=== PATIENT | male | born 1930 | race Caucasian/White ===

== ENCOUNTER 2018-07-09 22:01 | Inpatient (IN) | payer MEDICARE, OTHER ==
[~2018-07-09] VITALS: Ht 177.8 cm; Wt 77.3 kg
[~2018-07-09 22:01] MED LIST: AMA100C PO; CARB1TAB36 PO; COU1T PO; COU3T PO; LISI-642 PO; LOPE-144 PO; SIMV10TA6 PO; TERB15CR18 TP
[2018-07-09] MEDS ORDERED: LIDOcaine 2% 10ml TOPICAL JELLY (Urojet) MM ONE (22:10)
[2018-07-09] MEDS ORDERED: POTA10TA10 PO (22:57)
[2018-07-09] MEDS ORDERED: FURO-150 PO (22:57)
[2018-07-09] MEDS ORDERED: CARB1TAB23 PO ×3 (22:57)
[2018-07-09 23:01] LABS: ALANINE AMINOTRANSFERASE 24 U/L (12-78); ALBUMIN 3.6 G/DL (3.4-5.0); ALBUMIN/GLOBULIN RATIO 1.1 (1.1-1.5); ALKALINE PHOSPHATASE 106 IU/L (46-116); ANION GAP 6 (8-16); ASPARTATE AMINO TRANSFERASE 25 U/L (10-37); BILIRUBIN,TOTAL 0.7 MG/DL (0.1-1.0); BLOOD UREA NITROGEN 23 MG/DL (7-18); CHLORIDE 105 MMOL/L (99-107); CREATININE 1.15 MG/DL (0.60-1.10); GLUCOSE 205 MG/DL (70-104); POTASSIUM 4.4 MMOL/L (3.5-5.1); SODIUM 141 MMOL/L (135-145); TOTAL CARBON DIOXIDE 29.6 MMOL/L (24-32); eGFR 60 ML/MIN
[2018-07-09 23:21] LABS: BASOPHILS # (AUTO) 0.2 X10'3 (0-0.2); BASOPHILS % (AUTO) 1.2 % (0-1); EOSINOPHILS % (AUTO) 0.1 % (0-6); HEMATOCRIT 40.6 % (42.0-52.0); HEMOGLOBIN 13.5 g/dl (14.0-17.9); LYMPHOCYTES # (AUTO) 0.8 X10'3 (1.1-4.8); LYMPHOCYTES % (AUTO) 6.4 % (21-51); MEAN CORPUSCULAR HGB CONC 33.3 % (33.0-36.5); MEAN CORPUSCULAR VOLUME 93.1 FL (78-98); MEAN PLATELET VOLUME 8.7 FL (7.4-10.4); MONOCYTES # (AUTO) 0.8 X10'3 (0-0.9); MONOCYTES % (AUTO) 6.5 % (2-12); NEUTROPHILS % (AUTO) 85.8 % (42-75); PLATELET COUNT 167 X10'3 (140-440); RED BLOOD COUNT 4.36 X10'6 (4.70-6.10); RED CELL DISTRIBUTION WIDTH 14.8 % (11.5-14.5); WHITE BLOOD COUNT 12.8 X10'3 (4.5-11.0)
[2018-07-09 23:56] LABS: CLARITY,URINE CLEAR (Clear); COLOR,URINE YELLOW (Yellow); GLUCOSE, URINE NEGATIVE (Neg); KETONES,URINE NEGATIVE (Neg); LEUKOCYTE ESTERASE ,URINE NEGATIVE (Neg); NITRITES, URINE NEGATIVE (Neg); OCCULT BLOOD,URINE TRACE-INTACT (Neg); PROTEIN,URINE NEGATIVE (Neg); UROBILINOGEN,URINE 0.2 E.U/dL (0.2-1.0)
[2018-07-10] VITALS (15 sets, daily range): BP systolic 120–174; BP diastolic 40–87
[2018-07-10 00:02] LABS: PROTHROMBIN TIME 10.7 SECONDS (9.0-12.0)
[2018-07-10 00:28] LABS: UA COLLECTION TYPE FOLEY CATH
[2018-07-10 00:30] LABS: BACTERIA,URINE FEW /HPF (Neg); SQUAMOUS EPITHELIAL CELL,UR FEW /LPF (FEW); WBC,URINE 0-4 /HPF (0-4)
[2018-07-10] MEDS ORDERED: ondansetron/PF 4mg/2ml inj IV PRN ×2 (00:55→15:50)
[2018-07-10] MEDS ORDERED: mag hydrox/Alum hydrox/simeth 30ml oral suspension PO PRN (00:55)
[2018-07-10] MEDS ORDERED: magnesium hydroxide 30ml (MOM) UD suspension PO PRN (00:55)
[2018-07-10] MEDS: normal saline 1000ml 1,000 ML IV SCH ×2 (01:37→14:03)
[2018-07-10] MEDS: carbidoba-levodopa 25-100mg tablet PO SCH ×3 (08:18→20:33)
[2018-07-10] MEDS: morphine 2 MG/ML inj. syringe IV PRN ×2 (10:14→21:37)
[2018-07-10] MEDS ORDERED: BUPIVAcaine/PF 7.5mg/ml (0.75%) 10ml vial ONE (15:05)
[2018-07-10] MEDS ORDERED: fentaNYL/PF 50MCG/1 ML 2ML syringe ONE (15:07)
[2018-07-10] MEDS ORDERED: midazolam 2 mg/2 ml injection ONE (15:28)
[2018-07-10] MEDS ORDERED: ceFAZolin 1000mg inj ONE (15:30)
[2018-07-10] MEDS ORDERED: ringers solution, lacted 1,000 ML IV SCH (15:49)
[2018-07-10] MEDS ORDERED: HYDROmorphone 1 mg/ml syringe IV PRN (15:50)
[2018-07-10] MEDS ORDERED: morphine 4 MG/ML inj SYRINge IV PRN (15:50)
[2018-07-10] MEDS: ceFAZolin 1GM/D5W- ADD-VANTAGE 50 ML IV SCH (17:23)
[2018-07-11] MEDS: normal saline 1000ml 1,000 ML IV SCH ×3 (01:54→21:39)
[2018-07-11 02:00] VITALS: BP 125/72
[2018-07-11] MEDS ORDERED: ceFAZolin 1GM/D5W- ADD-VANTAGE 50 ML IV ONE (02:55)
[2018-07-11] MEDS: ceFAZolin 1GM/D5W- ADD-VANTAGE 50 ML IV SCH (02:57)
[2018-07-11 05:17] LABS: BASOPHILS % (AUTO) 0.1 % (0-1); EOSINOPHILS # (AUTO) 0.2 X10'3 (0-0.9); EOSINOPHILS % (AUTO) 1.4 % (0-6); HEMATOCRIT 39.1 % (42.0-52.0); HEMOGLOBIN 12.7 g/dl (14.0-17.9); LYMPHOCYTES # (AUTO) 0.9 X10'3 (1.1-4.8); LYMPHOCYTES % (AUTO) 7.9 % (21-51); MEAN CORPUSCULAR HEMOGLOBIN 30.5 PG (27.0-31.0); MEAN CORPUSCULAR HGB CONC 32.5 % (33.0-36.5); MEAN CORPUSCULAR VOLUME 93.7 FL (78-98); MEAN PLATELET VOLUME 8.9 FL (7.4-10.4); MONOCYTES # (AUTO) 0.7 X10'3 (0-0.9); MONOCYTES % (AUTO) 6.1 % (2-12); NEUTROPHILS # (AUTO) 9.7 X10'3 (1.8-7.7); NEUTROPHILS % (AUTO) 84.5 % (42-75); PLATELET COUNT 150 X10'3 (140-440); RED BLOOD COUNT 4.17 X10'6 (4.70-6.10); RED CELL DISTRIBUTION WIDTH 14.9 % (11.5-14.5); WHITE BLOOD COUNT 11.5 X10'3 (4.5-11.0)
[2018-07-11 05:26] LABS: ALANINE AMINOTRANSFERASE 9 U/L (12-78); ALBUMIN 3.1 G/DL (3.4-5.0); ALBUMIN/GLOBULIN RATIO 0.9 (1.1-1.5); ALKALINE PHOSPHATASE 80 IU/L (46-116); ANION GAP 10 (8-16); ASPARTATE AMINO TRANSFERASE 22 U/L (10-37); BILIRUBIN,TOTAL 0.7 MG/DL (0.1-1.0); BLOOD UREA NITROGEN 22 MG/DL (7-18); BUN/CREATININE RATIO 16.1 (5.4-32.0); CALCIUM 8.3 MG/DL (8.5-10.1); CHLORIDE 105 MMOL/L (99-107); CREATININE 1.37 MG/DL (0.60-1.10); GLUCOSE 190 MG/DL (70-104); SODIUM 141 MMOL/L (135-145); TOTAL CARBON DIOXIDE 25.8 MMOL/L (24-32); TOTAL PROTEIN 6.4 G/DL (6.4-8.2); eGFR 49 ML/MIN
[2018-07-11] MEDS: acetaminophen 325mg tablet PO PRN ×3 (05:55→21:27)
[2018-07-11 06:00] VITALS: BP 135/71
[2018-07-11] MEDS: enoxaparin 40mg/0.4ml syringe SQ SCH (07:28)
[2018-07-11] MEDS: carbidoba-levodopa 25-100mg tablet PO SCH ×3 (07:28→21:27)
[2018-07-11 10:00] VITALS: BP 112/51
[2018-07-11 18:00] VITALS: BP 126/66
[2018-07-11 22:00] VITALS: BP 130/64
[2018-07-12] MEDS: acetaminophen 325mg tablet PO PRN (05:33)
[2018-07-12 06:00] VITALS: BP 144/86
[2018-07-12] MEDS: furosemide 20MG tablet PO SCH (07:45)
[2018-07-12] MEDS: enoxaparin 40mg/0.4ml syringe SQ SCH (07:45)
[2018-07-12] MEDS: carbidoba-levodopa 25-100mg tablet PO SCH ×3 (07:45→19:43)
[2018-07-12] MEDS: potassium chloride 10mEq ER tablet PO SCH (07:45)
[2018-07-12] MEDS ORDERED: non-formulary drug (Potassium Chloride* (Klor-Con*) 1 TAB) PO SCH (08:00)
[2018-07-12 08:27] LABS: BASOPHILS # (AUTO) 0.1 X10'3 (0-0.2); BASOPHILS % (AUTO) 1.8 % (0-1); EOSINOPHILS # (AUTO) 0.5 X10'3 (0-0.9); EOSINOPHILS % (AUTO) 5.6 % (0-6); HEMATOCRIT 39.2 % (42.0-52.0); LYMPHOCYTES # (AUTO) 1.4 X10'3 (1.1-4.8); LYMPHOCYTES % (AUTO) 17.5 % (21-51); MEAN CORPUSCULAR HGB CONC 33.2 % (33.0-36.5); MEAN CORPUSCULAR VOLUME 93.4 FL (78-98); MEAN PLATELET VOLUME 9.5 FL (7.4-10.4); MONOCYTES # (AUTO) 0.7 X10'3 (0-0.9); MONOCYTES % (AUTO) 8.7 % (2-12); NEUTROPHILS # (AUTO) 5.5 X10'3 (1.8-7.7); NEUTROPHILS % (AUTO) 66.4 % (42-75); PLATELET COUNT 137 X10'3 (140-440); RED BLOOD COUNT 4.19 X10'6 (4.70-6.10); WHITE BLOOD COUNT 8.3 X10'3 (4.5-11.0)
[2018-07-12 08:46] LABS: ALANINE AMINOTRANSFERASE 13 U/L (12-78); ALBUMIN 3.1 G/DL (3.4-5.0); ALBUMIN/GLOBULIN RATIO 0.9 (1.1-1.5); ALKALINE PHOSPHATASE 71 IU/L (46-116); ANION GAP 8 (8-16); ASPARTATE AMINO TRANSFERASE 25 U/L (10-37); BILIRUBIN,TOTAL 0.6 MG/DL (0.1-1.0); BLOOD UREA NITROGEN 22 MG/DL (7-18); BUN/CREATININE RATIO 19.3 (5.4-32.0); CALCIUM 8.6 MG/DL (8.5-10.1); CHLORIDE 106 MMOL/L (99-107); CREATININE 1.14 MG/DL (0.60-1.10); GLUCOSE 124 MG/DL (70-104); POTASSIUM 4.2 MMOL/L (3.5-5.1); SODIUM 140 MMOL/L (135-145); TOTAL CARBON DIOXIDE 25.7 MMOL/L (24-32); TOTAL PROTEIN 6.5 G/DL (6.4-8.2); eGFR 60 ML/MIN
[2018-07-12 10:00] VITALS: BP 118/53
[2018-07-12] MEDS: normal saline 1000ml 1,000 ML IV SCH ×2 (12:13→23:38)
[2018-07-12 19:00] VITALS: BP 167/75
[2018-07-12 22:00] VITALS: BP 154/96
[2018-07-13 05:00] VITALS: BP 168/83
[2018-07-13] MEDS: morphine 2 MG/ML inj. syringe IV PRN (06:12)
[2018-07-13 06:46] LABS: BASOPHILS % (AUTO) 0.3 % (0-1); EOSINOPHILS # (AUTO) 0.5 X10'3 (0-0.9); EOSINOPHILS % (AUTO) 7.6 % (0-6); HEMATOCRIT 35.1 % (42.0-52.0); HEMOGLOBIN 11.8 g/dl (14.0-17.9); LYMPHOCYTES # (AUTO) 1.5 X10'3 (1.1-4.8); LYMPHOCYTES % (AUTO) 22.4 % (21-51); MEAN CORPUSCULAR HEMOGLOBIN 31.5 PG (27.0-31.0); MEAN CORPUSCULAR HGB CONC 33.7 % (33.0-36.5); MEAN CORPUSCULAR VOLUME 93.4 FL (78-98); MEAN PLATELET VOLUME 8.9 FL (7.4-10.4); MONOCYTES # (AUTO) 0.8 X10'3 (0-0.9); MONOCYTES % (AUTO) 11.7 % (2-12); NEUTROPHILS # (AUTO) 3.9 X10'3 (1.8-7.7); PLATELET COUNT 154 X10'3 (140-440); RED BLOOD COUNT 3.76 X10'6 (4.70-6.10); RED CELL DISTRIBUTION WIDTH 14.6 % (11.5-14.5); WHITE BLOOD COUNT 6.7 X10'3 (4.5-11.0)
[2018-07-13 06:47] LABS: ALANINE AMINOTRANSFERASE 9 U/L (12-78); ALBUMIN 2.6 G/DL (3.4-5.0); ALBUMIN/GLOBULIN RATIO 0.8 (1.1-1.5); ALKALINE PHOSPHATASE 64 IU/L (46-116); ANION GAP 8 (8-16); ASPARTATE AMINO TRANSFERASE 23 U/L (10-37); BILIRUBIN,TOTAL 0.5 MG/DL (0.1-1.0); BLOOD UREA NITROGEN 20 MG/DL (7-18); BUN/CREATININE RATIO 19.4 (5.4-32.0); CALCIUM 7.9 MG/DL (8.5-10.1); CHLORIDE 106 MMOL/L (99-107); CREATININE 1.03 MG/DL (0.60-1.10); GLUCOSE 120 MG/DL (70-104); SODIUM 140 MMOL/L (135-145); TOTAL CARBON DIOXIDE 25.7 MMOL/L (24-32); TOTAL PROTEIN 5.8 G/DL (6.4-8.2); eGFR 68 ML/MIN
[2018-07-13] MEDS: carbidoba-levodopa 25-100mg tablet PO SCH ×3 (07:50→20:22)
[2018-07-13] MEDS: enoxaparin 40mg/0.4ml syringe SQ SCH (07:50)
[2018-07-13] MEDS: potassium chloride 10mEq ER tablet PO SCH (07:50)
[2018-07-13] MEDS: furosemide 20MG tablet PO SCH (07:50)
[2018-07-13 07:55] VITALS: BP 141/68
[2018-07-13 10:00] VITALS: BP 117/67
[2018-07-13 18:00] VITALS: BP 167/77
[2018-07-13 22:00] VITALS: BP 146/59
[2018-07-14 05:00] VITALS: BP 154/65
[2018-07-14 06:32] LABS: BASOPHILS % (AUTO) 0.4 % (0-1); EOSINOPHILS # (AUTO) 0.4 X10'3 (0-0.9); EOSINOPHILS % (AUTO) 6.2 % (0-6); HEMATOCRIT 36.9 % (42.0-52.0); HEMOGLOBIN 12.2 g/dl (14.0-17.9); LYMPHOCYTES # (AUTO) 1.2 X10'3 (1.1-4.8); LYMPHOCYTES % (AUTO) 18.9 % (21-51); MEAN CORPUSCULAR HEMOGLOBIN 30.7 PG (27.0-31.0); MEAN CORPUSCULAR HGB CONC 33.1 % (33.0-36.5); MEAN CORPUSCULAR VOLUME 92.8 FL (78-98); MEAN PLATELET VOLUME 8.6 FL (7.4-10.4); MONOCYTES # (AUTO) 0.8 X10'3 (0-0.9); MONOCYTES % (AUTO) 12.5 % (2-12); PLATELET COUNT 167 X10'3 (140-440); RED BLOOD COUNT 3.97 X10'6 (4.70-6.10); RED CELL DISTRIBUTION WIDTH 15.2 % (11.5-14.5); WHITE BLOOD COUNT 6.4 X10'3 (4.5-11.0)
[2018-07-14 06:58] LABS: ALANINE AMINOTRANSFERASE 10 U/L (12-78); ALBUMIN 2.9 G/DL (3.4-5.0); ALBUMIN/GLOBULIN RATIO 0.9 (1.1-1.5); ALKALINE PHOSPHATASE 69 IU/L (46-116); ANION GAP 9 (8-16); ASPARTATE AMINO TRANSFERASE 37 U/L (10-37); BILIRUBIN,TOTAL 0.5 MG/DL (0.1-1.0); BLOOD UREA NITROGEN 25 MG/DL (7-18); BUN/CREATININE RATIO 23.6 (5.4-32.0); CALCIUM 8.5 MG/DL (8.5-10.1); CHLORIDE 107 MMOL/L (99-107); CREATININE 1.06 MG/DL (0.60-1.10); GLUCOSE 137 MG/DL (70-104); SODIUM 142 MMOL/L (135-145); TOTAL CARBON DIOXIDE 25.7 MMOL/L (24-32); TOTAL PROTEIN 6.3 G/DL (6.4-8.2); eGFR 66 ML/MIN
[2018-07-14] MEDS: furosemide 20MG tablet PO SCH (07:34)
[2018-07-14] MEDS: potassium chloride 10mEq ER tablet PO SCH (07:34)
[2018-07-14] MEDS: carbidoba-levodopa 25-100mg tablet PO SCH (07:36)
[2018-07-14] MEDS: enoxaparin 40mg/0.4ml syringe SQ SCH (07:39)
[2018-07-14 10:00] VITALS: BP 130/70
== END 2018-07-14 12:00 | DRG 481 ==
LOC: ER 22:02 → ED HOLD 07-10 00:54 → ORTHO 4S 07-10 17:07
PROVIDERS: ADMIT Internal Medicine; ATTEND Internal Medicine
PROC: 0QS734Z Reposition Left Upper Femur with Internal Fixation Device, Percutaneous Approach (ICD-10-PCS; principal; 2018-07-10 15:06)
DX: S72.002A Fracture of unspecified part of neck of left femur, initial encounter for closed fracture (principal); N17.9 Acute kidney failure, unspecified; D62 Acute posthemorrhagic anemia; E78.00 Pure hypercholesterolemia, unspecified; G20 Parkinson's disease; W18.39XA Other fall on same level, initial encounter; Z66 Do not resuscitate; I10 Essential (primary) hypertension; N40.0 Benign prostatic hyperplasia without lower urinary tract symptoms; Z86.718 Personal history of other venous thrombosis and embolism; Z79.899 Other long term (current) drug therapy; Y93.89 Activity, other specified; Y92.89 Other specified places as the place of occurrence of the external cause; Y99.8 Other external cause status
CPT/HCPCS: 36415; 71045; 73502; 76000; 80053; 81001; 81003; 82948; 85025; 85610; 86885; 86900; 86901; 87070; 93005; 97110; 97116; 97161; 97530; 99285; A7000; C1713; C1750; J0690; J1650; J2250; J2270; J3010; J3490; J7030; J7120